=== PATIENT | male | born 1950 | race Caucasian/White ===

== ENCOUNTER → 2022-11-09 | Outpatient (CLI) | payer MEDICARE, OTHER ==
--- NOTE | 2022-11-09 12:13 | DIREP ---
PROCEDURE:XRAY UGI TRACT W/KUB COMPARISON:None. INDICATIONS:DYSPHAGIA TECHNIQUE:The patient swallowed barium and effervescent material under fluoroscopic observation of the esophagus, stomach, and proximal small bowel. Multiple spot and overhead films were obtained. FINDINGS: ESOPHAGUS:There is a posteriorly directed outpouching of the cervical esophagus which partially fills with contrast and retains contrast on the exam. This is compatible with a Zenker diverticulum. Mild tertiary contractions are present in the esophagus. No mucosal abnormality or stricture. Mild gastroesophageal reflex. STOMACH:Normally distensible and free of filling defects. DUODENUM:Normal. No evidence of ulcer disease. OTHER:Negative. FLUORO TIME: 3.3 minutes NUMBER OF IMAGES: 39 TOTAL DOSE:87.439 mGy, reference air kerma CONCLUSION: 1. Moderate-sized Zenker diverticulum. 2. Mild presbyesophagus. 3. Mild gastroesophageal reflux. Dictated by: Manas Joshi M.D. on 11/09/2022 at 12:07 PM
== END | disposition home or self-care (01) ==
LOC: RAD 09:20
PROVIDERS: ATTEND Surgery Surgical Oncology
DX: K22.5 Diverticulum of esophagus, acquired (principal); K22.89 Other specified disease of esophagus; K21.9 Gastro-esophageal reflux disease without esophagitis
CPT/HCPCS: 74246